=== PATIENT | male | born 1980 | race Hispanic/Latino ===

== ENCOUNTER 2019-05-23 07:34 | Outpatient (CLI) | payer BC ==
--- NOTE | 2019-05-23 09:32 | MRI ---
MRI Lower Ext No Jt Rt WO Con HISTORY: Strain of the gastrocnemius muscle. Patient was doing and lunch and heard a pop. COMPARISON: None. FINDINGS: There are edema changes involving the medial head of the gastrocnemius muscle and musculote ndinous junction of the gastrocnemius muscle in addition there is a evidence for a plantaris tendon tear with the prominent focus of decreased signal change between the medial head gastrocnemius and de eper soleus muscle representing a torn retracted tendon. This actually appears be a combination of injury to the medial most side of the musculotendinous junction of the gastrocnemius muscle and plant zena tendon. The plantaris muscle shows no evidence of strain. Soleus muscles normal in appearance. IMPRESSION: 1. Plantaris tendon rupture. 2. In addition there is a grade 2 muscle strain of the gastrocnemius muscle at the musculotendinous j unction. There are edema changes within the medial head of gastrocnemius muscle and evidence of injury to the medial side of the musculotendinous junction of the medial head of the gastrocnemius mu scle.
== END 2019-05-23 07:35 | disposition home or self-care (01) ==
LOC: SCSMRI 07:34
PROVIDERS: ATTEND Orthopaedic Surgery
DX: S86.111A Strain of other muscle(s) and tendon(s) of posterior muscle group at lower leg level, right leg, initial encounter (principal)